=== PATIENT | female | born 1945 | race Caucasian/White ===

== ENCOUNTER 2022-04-25 18:40 | Emergency (ER) | payer OTHER ==
[~2022-04-25] VITALS: Ht 165.1 cm; Wt 66.2 kg
[2022-04-25 20:37] LABS: Basophils # (auto) 0 10 ^3/uL (0-0.2); Basophils % (auto) 0.8 % (0.0-2.0); Eosinophils # (auto) 0 10 ^3/uL (0-0.8); Eosinophils % (auto) 0.1 % (0.0-7.0); Hematocrit 40.2 % (36.0-46.0); Hemoglobin 13.8 g/dL (12.2-16.2); Lymphocytes # (auto) 1.4 10 ^3/uL (0.4-5.4); Mean Corpuscular Hemoglobin 29.7 pg (28.0-32.0); Mean Corpuscular Hgb Conc. 34.3 g/dL (32.0-36.0); Mean Corpuscular Volume 86.6 fL (80.0-100.0); Monocytes # (auto) 0.6 10 ^3/uL (0-1.3); Monocytes % (auto) 9.5 % (0.0-12.0); Neutrophils # (auto) 4.1 10 ^3/uL (1.6-8.6); Neutrophils % (auto) 66.6 % (37.0-80.0); Nucleated Red Blood Cells % 0.1 %; Red Blood Cells 4.65 10^6/uL (4.0-5.20); Red Cell Distribution Width 12.7 % (11.8-14.3); White Blood Cell 6.1 10^3/uL (4.4-10.8)
[2022-04-25 20:57] LABS: Partial Thromboplastin Time 27.1 sec (24.6-33.4)
[2022-04-25 20:58] LABS: Albumin 3.8 g/dL (3.4-5.0); BUN/Creatinine Ratio 27.5; Calcium 9.6 mg/dL (8.5-10.1); Magnesium 2.4 mg/dL (1.6-2.6); Potassium 3.5 mmol/L (3.5-5.1)
[2022-04-25 21:08] LABS: Bilirubin, Total 0.6 mg/dL (0.2-1.0); Total Protein 6.9 g/dL (6.4-8.2)
[2022-04-25 21:26] LABS: Urine Amorphous Crystal MANY /hpf (None Seen); Urine Bacteria NONE SEEN /hpf (None Seen); Urine Blood Negative /uL (Negative); Urine Specific Gravity 1.014 (1.001-1.035); Urine WBC 11 /hpf (0 - 5)
[2022-04-25] MEDS ORDERED: levoFLOXacin 500 MG TAB PO ONE (22:00)
[2022-04-25] MEDS ORDERED: ASPirin-EC 325mg tab PO ONE (22:30)
[2022-04-26 06:00] VITALS: BP 173/72
== END 2022-04-26 06:15 | disposition short-term general hospital (02) ==
LOC: EDBD 18:40 → ER 18:44
DX: F03.90 Unspecified dementia, unspecified severity, without behavioral disturbance, psychotic disturbance, mood disturbance, and anxiety (principal); R77.8 Other specified abnormalities of plasma proteins; N39.0 Urinary tract infection, site not specified; E11.9 Type 2 diabetes mellitus without complications; Z20.822 Contact with and (suspected) exposure to COVID-19
CPT/HCPCS: 36415; 70450; 71045; 80053; 81001; 83735; 83880; 84484; 85025; 85610; 85730; 87086; 87426